=== PATIENT | male | born 1955 | race Caucasian/White ===

== ENCOUNTER 2016-10-02 22:26 | Observation (INO) | payer SELFPAY ==
[~2016-10-02] VITALS: Ht 165.1 cm; Wt 67.2 kg
[~2016-10-02 22:26] MED LIST: ALEVE220 MG PO; CARDURA8 MG PO; CYCLOBENZAPRINE10 MG PO; MELATONIN3 MG PO; VICODIN EQUIVAL1 TAB PO
--- NOTE | 2016-10-02 23:56 | ED CLINICAL REPORT ---
Clinical Report - Physicians/Mid Levels Located Within [facility] [address] [place] [address] 10/02/2016 22:25 Patient: FREDIS KOHLER Time Seen: 22:48. Arrived- By private vehicle. Historian- patient. HISTORY OF PRESENT ILLNESS Chief Complaint: ABDOMINAL PAIN and VOMITING. This started today about 3 1/2 hours ago and is still present. It was gradual in onset and has been waxing/waning. It is described as "pain". No radiation. It is described as generalized in location and located in the epigastric area and left upper quadrant and in the upper abdomen. At its maximum, severity described as moderate. When seen in the E.D., severity described as moderate. Modifying factors- worsened by food. Relieved by rest. Not relieved by anything. The patient has had nausea and vomiting. No bilious emesis, blood-tinged emesis or frankly bloody emesis. (Last oral intake by patient was (3 1/2 hours ago).). Similar symptoms previously: Recent medical care: Not recently seen/assessed. REVIEW OF SYSTEMS No constipation, black stools, hematemesis, difficulty with urination or pain with urination. No urinary frequency, bloody stools, fever, headache or sore throat. No chest pain, difficulty breathing, cough or back pain. All systems otherwise negative, except as recorded above. PAST HISTORY PROBLEMS: Animal Bite. Chronic Feet Px since child. Insomnia SURGERIES: Foot Sx. Hernia Repair. Right Forearm Sx. Medications: Flexeril, PRN (Back Pain). Melatonin Oral. Vicodin Oral, as needed (feet arthritis). Allergies: Codeine. PERCOCET, PERCODAN. SOCIAL HISTORY Never smoker. History of drug use: marijuana. No alcohol use. Is a local resident. ADDITIONAL NOTES The nursing notes have been reviewed. PHYSICAL EXAM Vital Signs: 10/02/2016 22:36 BP: 197/104. HR: 73. RR: 20. O2 saturation: 99%. Temp: 97.6 F. Appearance: Alert. Oriented X3. Patient in moderate distress. Eyes: Eyes normal inspection. No scleral icterus or pale conjunctivae. ENT: Pharynx normal. No pharyngeal erythema or tonsillar exudate. The mucous membranes are not dry. Neck: Normal inspection. Neck supple. CVS: Normal heart rate and rhythm. Heart sounds normal. Pulses normal. Respiratory: No respiratory distress. Breath sounds normal. Abdomen: Soft. Moderate tenderness diffusely. No mass. No rebound tenderness or guarding. Back: Normal inspection. Skin: Skin warm and dry. Normal skin color. Normal skin turgor. Extremities: Extremities exhibit normal ROM. No lower extremity edema. No calf tenderness. No lower extremity edema. Neuro: Oriented X 3. No motor deficit. LABS, X-RAYS, AND EKG Laboratory Tests: UA-Culture if indicated: (PAT: 10/02/2016 23:35) ( [facility] 10/02/2016 23:51) Final results Test Result Flag Units (Reference) URINE COLOR YELLOW URINE APPEARANCE CLEAR URINE GLUCOSE NEGATIVE (NEGATIVE) URINE BILIRUBIN NEGATIVE (NEGATIVE) URINE KETONE 1+ (NEGATIVE) URINE SPECIFIC GRAVITY 1.020 (1.010-1.030) URINE PH 7.0 (5.0-8.0) URINE PROTEIN NEGATIVE (NEGATIVE) URINE UROBILINOGEN 0.2 EU/dL (0.2-1.0) URINE NITRITE NEGATIVE (NEGATIVE) URINE BLOOD NEGATIVE (NEGATIVE) URINE LEUK ESTERASE NEGATIVE (NEGATIVE) URINE RBC 0-1 rbc/hpf (0-1) URINE WBC 0-1 wbc/hpf (0-1) URINE EPITHELIAL CELLS 0-1 EPI/hpf (0-5) URINE BACTERIA NONE SEEN (NONE SEEN) URINE COMMENT CULT NOT INDICATED URINE CULTURES ARE SET-UP BASED ON THE FOLLOWING CRITERIA:POSITIVE NITRITEPOSITIVE LEUKOCYTE ESTERASEGREATER THAN 10 WHITE BLOOD CELLSMODERATE (2+) OR GREATER BACTERIA CBC w Diff: (PAT: 10/02/2016 23:07) ( [facility] [place]) Final results Test Result Flag Units (Reference) WHITE BLOOD COUNT 8.5 K/uL (4.5-11.5) RED BLOOD COUNT 5.46 M/uL (4.50-5.90) HEMOGLOBIN 16.3 gm/dL (13.5-17.5) HEMATOCRIT 47.6 % (41.0-53.0) MEAN CELL VOLUME 87 fL (80-100) MEAN CORPUSCULAR HGB 30 pg (26-34) MEAN CORPUSCULAR HGB CONC 34 g/dL (31-37) RED CELL DISTRIBUTION WIDTH 13.5 % (11.6-14.8) PLATELET COUNT 228 K/uL (150-400) LYMPH % 21.5 L % (25-40) MONO % 5.0 % (3-14) GRANULOCYTE % 73.5 Urine Drug Screen: (PAT: 10/02/2016 23:35) ( [facility] 10/03/2016 00:05) Final results Test Result Flag Units (Reference) AMPHETAMINE/METHAMPHETAMINE NEGATIVE (NEGATIVE) BARBITURATE NEGATIVE (NEGATIVE) BENZODIAZEPINE NEGATIVE (NEGATIVE) CANNABINOID POSITIVE H (NEGATIVE) COCAINE NEGATIVE (NEGATIVE) ECSTASY NEGATIVE (NEGATIVE) METHADONE NEGATIVE (NEGATIVE) OPIATE NEGATIVE (NEGATIVE) The urine drug screen is a qualitative screening test fordrug overdose and abuse. All screen results should beconsidered as presumptive.Drugs screened for are as follows:BenzodiazepinesCocaineAmphetamines/MetamphetaminesTHC (Tetrahydrocannabinol)OpiatesBarbituratesEcstasyMethadonePositive results are unconfirmed. For confirmation, notifythe lab for the specimen to be sent to the reference lab.All confirmations must be performed by a differentmethodology.The ingestion of natural herbal and plant productscontaining Ephedra/Ephedra metabolites can produce in urineone or more substances capable of cross reacting withamphetamine/methamphetamine immunoassays. These testsprovide a preliminary result only. A more specificalternative chemical method must be used to obtain aconfirmed analytical result. CMP: (PAT: 10/02/2016 23:07) ( [facility] [place]02[facility] 23:33) Final results Test Result Flag Units (Reference) GLUCOSE 136 H mg/dL (70-110) BUN 18 mg/dL (7-18) CREATININE 0.9 mg/dL (0.6-1.3) Estimated GFR >60 mL/min Estimated GFR- >60 mL/min Note: Persistent reduction over 3 months in eGFR<60 mL/min/1.73 m2 defines CKD. Patients with eGFR values>=60 mL/min/1.73 m2 may also have CKD if evidence ofpersistent proteinuria. Additional information may be foundat www.kidney.org. SODIUM 139 mmol/L (136-145) POTASSIUM 3.7 mmol/L (3.5-5.1) CHLORIDE 102 mmol/L (98-107) CARBON DIOXIDE 26 mmol/L (21-32) CALCIUM 9.3 mg/dL (8.5-10.1) TOTAL PROTEIN 7.6 g/dL (6.4-8.2) ALBUMIN 4.4 g/dL (3.3-5.0) BILIRUBIN, TOTAL 0.9 mg/dL (0.0-1.0) ALKALINE PHOSPHATASE 70 U/L (46-116) AST (SGOT) 22 U/L (15-37) ALT (SGPT) 23 U/L (12-78) LIPASE 645 H U/L (73-393) AMYLASE 192 H U/L (25-115) ETHYL ALCOHOL <3 L mg/dL (3-10) . Pulse Oximetry: 10/02/2016 22:36 O2 saturation: 99%. (FIO2 - room air). Interpretation: normal. PROGRESS AND PROCEDURES Course of Care: Normal Saline 1 liter IVPB given. Zofran 4 mg IVP given. Protonix 40 mg IVP given. Dilaudid 0.5 mg and Phenergan 12.5 mg IVP given. Patient is stable. Physical exam findings are improved. Symptoms better. Pt with pancreatic enzyme elevation and corresponding abdominal pain and vomiting. He will be admitted for observation, IVF, GI rest and symptomatic treatment with repeat enzymes tomorrow. Discussed case with hospitalist, (Ramiro call returned 00:05). Reviewed test results. Agreed upon treatment plan and decision to place in observation. Health care provider will see patient in hospital. Patient/family counseled. Old ED records reviewed. Transition orders written. Disposition: Observation in Acute Care. Condition: stable, guarded and improved. CLINICAL IMPRESSION Vomiting with nausea. Not intractable. Acute idiopathic pancreatitis. Essential hypertension. Chronic substance abuse- marijuana. INSTRUCTIONS Follow-up: Screening today revealed the patient's blood pressure to be in the hypertensive range. The patient should follow up with a primary care provider for blood pressure management. The patient was admitted and blood pressure will be managed during the admission. (Electronically signed by Biju Gregorio DO 10/03/2016 1:14)
--- NOTE | 2016-10-02 23:56 | ED ORDER SUMMARY ---
..... Patient: FREDIS KOHLER OrderSheet [facility] VisitID: [id number] [address] [place] [address] 61y, M Registration Date/Time: 10/02/2016 ORDER SHEET Weight: 68.0 kg (stated) Allergies: Codeine, PERCOCET, PERCODAN GENERAL ORDERS: CBC w Diff Urgent (22:51 10/02/2016 [facility]) (Ack 23:01 Anthoy[employer]ands[employer]na) (23:15 JBullard R.N.) CMP Urgent (22:51 [facility]2016 [facility] (Ack 23:01 Anthonyekna) (23:15 JBullard R.N.) UA-Culture if indicated Urgent (22:51 10/02/2016 [facility] ) (Ack 23:01 Anthonyekna) (23:41 JBullard R.N.) Amylase Urgent (22:51 10/02/2016 [facility]) (Ack 23:01 Anthonyekimana) (23:15 JBullard R.N.) Lipase Urgent (22:51 10/02/2016 [facility]) (Ack 23:01 Anthonyekimana) (23:15 JBullard R.N.) Urine Drug Screen Urgent (22:51 10/02/2016 [facility] ) (Ack 23:01 Anthonyekna) (23:41 JBullard R.N.) Ethyl Alcohol Urgent (22:51 10/02/2016 [facility]) (Ack 23:01 Anthonyna) (23:15 JBullard R.N.) NPO (22:51 10[facility]02/2016 [facility]) (23:15 JBullard R.N.) MEDICATION ORDERS: Phenergan IV 12.5 mg (HIGH ALERT MEDICATION, NOW) (00:10 10/03/2016 [facility]) (0:27 JBullard R.N.) IV FLUIDS: IV NS : initial bolus 500 mL (1000 mL/hr), then 250 mL/hr for X2 (NOW) (22:50 10/02/2016 [facility]) (23:16 Monroe Mixon.N.) Zofran IV 4 mg (may repeat x 1 prn nausea) (22:51 10/02/2016 [facility]) (23:16 Monroe Mixon.N.) Protonix IVP 40mg 40 mg (Mix in NS 10ml over 2min) (22:51 10/02/2016 [facility]) (23:16 Monroe Mixon.N.) Dilaudid IV 0.5 mg (HIGH ALERT MEDICATION, NOW) (00:10 10/03/2016 [facility]) (0:27 Monroe Mixon.NFer) ORDER SHEET NOTES: [Electronically signed by Tolu Barlow R.N. (00:43 10/03/2016)] [Electronically signed by Biju Gregorio DO (01:14 10/03/2016)] [Electronically locked/signed by Tolu Barlow R.N. (00:43 10/03/2016)]
--- NOTE | 2016-10-02 23:56 | ED NURSING NOTES ---
Clinical Report - Nurses [facility] [address] [place] [address] 10/02/2016 22:25 Patient: FREDIS KOHLER TRIAGE Acuity: LEVEL 3. Chief Complaint: ABDOMINAL PAIN, NAUSEA and VOMITING. --22:41 Tolu Barlow R.N. 22:36 10/02/16. BP: 197/104. HR: 73. RR: 20. O2 saturation: 99%. Temp: 97.6 F. --22:41 Tolu Barlow R.N. Weight: 68 kg stated. Height/Length: 65 inches Per Patient. BMI: 25. --22:41 Tolu Barlow R.N. Medications Flexeril, PRN (Back Pain). Melatonin Oral. Vicodin Oral, as needed (feet arthritis). --22:38 Tolu Barlow R.N. Allergies Codeine. PERCOCET, PERCODAN. --22:38 Tolu Barlow R.N. History ( pt ate dinner at approx. 7pm, approx. 10 min. later pt started vomitting.). He has had nausea, vomiting and abdominal pain. Last oral intake by patient was (3 1/2 hours ago). 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 SOCIAL HX: Never smoker. History of heavy drug use: marijuana. Recently used drugs today. No alcohol use. FALL RISK ASSESSMENT: Fall risk assessment completed. No fall risk identified. NUTRITIONAL RISK ASSESSMENT: The nutritional risk assessment revealed no deficiencies. FUNCTIONAL ASSESSMENT: Functional assessment: no impairments noted. LEARNING NEEDS ASSESSMENT: The learning needs assessment revealed no barriers. SKIN INTEGRITY ASSESSMENT: Skin integrity risk assessment completed. No skin integrity risk identified. --22:41 Tolu Barlow R.N. PROBLEMS: Animal Bite. Chronic Feet Px since child. --22:38 Tolu Barlow R.N. ADDITIONAL SURGERIES: Feet Sx. Hernia Repair. Right Forearm Sx. --22:38 Tolu Barlow R.N. Interventions ID band on patient. --22:41 Tolu Barlow R.N. PHYSICAL ASSESSMENT GENERAL / NEURO / PSYCH: Alert. Oriented X 4. Appears in distress. HEENT: Mucous membranes are pink. RESPIRATORY: Respirations not labored. Breath sounds within normal limits. CVS: Normal sinus rhythm noted. Capillary refill less than 2 seconds. SKIN: Skin is warm and dry. --22:41 Tolu Barlow R.N. Ambulatory to room. --22:41 Tolu Barlow R.N. NURSING PROGRESS NOTES Head of bed elevated. Reassurance given. Patient identifiers checked. Call light placed in reach. Bed placed in lowest position. Brakes of bed on. --22:41 Tolu Barlow R.N. 23:10/02/2016 Site #1 started via IV in the left antecubital space with an 18g angiocath, with aseptic technique and good blood return; one attempt. Blood drawn: rainbow set. Labeled in the presence of the patient and sent to the lab. Saline lock flushed with saline. --23:15 Tolu Barlow R.N. 23:15 10/02/2016 Started bag #1 1000 mL IV Fluids IV NS (Saline); at 333 mL/hr over 3 hour(s) via site #1. Allergies verified and confirmed 5 rights. IV patency established. IV site checked: no pain, redness, or swelling. IV flushed thoroughly pre- and post-medication administration. --23:16 Tolu Barlow R.N. 23:16 10/02/2016 Zofran (Ondansetron HCl) IVP 4 mg given. via site #1. Allergies verified and confirmed 5 rights. IV patency established. IV site checked: no pain, redness, or swelling. IV flushed thoroughly pre- and post-medication administration. --23:16 Tolu Barlow R.N. 23:16 10/02/2016 PROTONIX 40MG (Pantoprazole Sodium) IVP 40 mg given over 2 minute(s) via site #1. Allergies verified and confirmed 5 rights. IV patency established. IV site checked: no pain, redness, or swelling. IV flushed thoroughly pre- and post-medication administration. --23:16 Tolu Barlow R.N. 00:27 10/03/2016 Dilaudid (HYDROmorphone HCl PF) IVP 0.5 mg given. via site #1. Allergies verified, confirmed 5 rights and sedative warning given to the patient and patient's ghost writer. IV patency established. IV site checked: no pain, redness, or swelling. IV flushed thoroughly pre- and post-medication administration. --00:27 Tolu Barlow R.N. 00:27 10/03/2016 PHENERGAN (Promethazine HCl) IVP 12.5 mg given. via site #1. Allergies verified and confirmed 5 rights. IV patency established. IV site checked: no pain, redness, or swelling. IV flushed thoroughly pre- and post-medication administration. --00:27 Tolu Barlow R.N. 00:28 10/03/2016 IV Fluids IV NS Discontinued: completed. Total amount infused: 1000 mL. IV patency established. IV site checked: no pain, redness, or swelling. IV flushed thoroughly. --00:28 Tolu Barlow R.N. DISPOSITION / DISCHARGE Transported via stretcher. Report was given to a nurse via a phone call. Report included patient's care, treatment, medications, reviewed medication reconcilliation, and condition (including any recent changes or anticipated changes). All questions were answered. Report was acknowledged and care was transferred. Bed obtained. --00:38 Tlou Barlow R.N. 00:37 10/03/16. BP: 188/98. HR: 88. RR: 16. O2 saturation: 98%. Temp: 98 F. Pain level now 10/22. --00:38 Tolu Barlow R.N. Departure time: 41. --00:43 Tolu Barlow R.N. Locked/Released at 10/03/2016 0:43 by Tolu Barlow R.N.
--- NOTE | 2016-10-02 23:56 | ED NURSING NOTES ---
Clinical Report - Nurses [facility] [address] [place] [address] 10/02/2016 22:25 Patient: FREDIS KOHLER TRIAGE Acuity: LEVEL 3. Chief Complaint: ABDOMINAL PAIN, NAUSEA and VOMITING. --22:41 Tolu Barlow R.N. 22:36 10/02/16. BP: 197/104. HR: 73. RR: 20. O2 saturation: 99%. Temp: 97.6 F. --22:41 Tolu Barlow R.N. Weight: 68 kg stated. Height/Length: 65 inches Per Patient. BMI: 25. --22:41 Tolu Barlow R.N. Medications Flexeril, PRN (Back Pain). Melatonin Oral. Vicodin Oral, as needed (feet arthritis). --22:38 Tolu Barlow R.N. Allergies Codeine. PERCOCET, PERCODAN. --22:38 Tolu Barlow R.N. History ( pt ate dinner at approx. 7pm, approx. 10 min. later pt started vomitting.). He has had nausea, vomiting and abdominal pain. Last oral intake by patient was (3 1/2 hours ago). 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 SOCIAL HX: Never smoker. History of heavy drug use: marijuana. Recently used drugs today. No alcohol use. FALL RISK ASSESSMENT: Fall risk assessment completed. No fall risk identified. NUTRITIONAL RISK ASSESSMENT: The nutritional risk assessment revealed no deficiencies. FUNCTIONAL ASSESSMENT: Functional assessment: no impairments noted. LEARNING NEEDS ASSESSMENT: The learning needs assessment revealed no barriers. SKIN INTEGRITY ASSESSMENT: Skin integrity risk assessment completed. No skin integrity risk identified. --22:41 Tolu Barlow R.N. PROBLEMS: Animal Bite. Chronic Feet Px since child. --22:38 Tolu Barlow R.N. ADDITIONAL SURGERIES: Feet Sx. Hernia Repair. Right Forearm Sx. --22:38 Tolu Barlow R.N. Interventions ID band on patient. --22:41 Tolu Barlow R.N. PHYSICAL ASSESSMENT GENERAL / NEURO / PSYCH: Alert. Oriented X 4. Appears in distress. HEENT: Mucous membranes are pink. RESPIRATORY: Respirations not labored. Breath sounds within normal limits. CVS: Normal sinus rhythm noted. Capillary refill less than 2 seconds. SKIN: Skin is warm and dry. --22:41 Tolu Barlow R.N. Ambulatory to room. --22:41 Tolu Barlow R.N. NURSING PROGRESS NOTES Head of bed elevated. Reassurance given. Patient identifiers checked. Call light placed in reach. Bed placed in lowest position. Brakes of bed on. --22:41 Tolu Barlow R.N. 23:10/02/2016 Site #1 started via IV in the left antecubital space with an 18g angiocath, with aseptic technique and good blood return; one attempt. Blood drawn: rainbow set. Labeled in the presence of the patient and sent to the lab. Saline lock flushed with saline. --23:15 Tolu Barlow R.N. 23:15 10/02/2016 Started bag #1 1000 mL IV Fluids IV NS (Saline); at 333 mL/hr over 3 hour(s) via site #1. Allergies verified and confirmed 5 rights. IV patency established. IV site checked: no pain, redness, or swelling. IV flushed thoroughly pre- and post-medication administration. --23:16 Tolu Barlow R.N. 23:16 10/02/2016 Zofran (Ondansetron HCl) IVP 4 mg given. via site #1. Allergies verified and confirmed 5 rights. IV patency established. IV site checked: no pain, redness, or swelling. IV flushed thoroughly pre- and post-medication administration. --23:16 Tolu Barlow R.N. 23:16 10/02/2016 PROTONIX 40MG (Pantoprazole Sodium) IVP 40 mg given over 2 minute(s) via site #1. Allergies verified and confirmed 5 rights. IV patency established. IV site checked: no pain, redness, or swelling. IV flushed thoroughly pre- and post-medication administration. --23:16 Tolu Barlow R.N. 00:27 10/03/2016 Dilaudid (HYDROmorphone HCl PF) IVP 0.5 mg given. via site #1. Allergies verified, confirmed 5 rights and sedative warning given to the patient and patient's sales associate fishing. IV patency established. IV site checked: no pain, redness, or swelling. IV flushed thoroughly pre- and post-medication administration. --00:27 Tolu Barlow R.N. 00:27 10/03/2016 PHENERGAN (Promethazine HCl) IVP 12.5 mg given. via site #1. Allergies verified and confirmed 5 rights. IV patency established. IV site checked: no pain, redness, or swelling. IV flushed thoroughly pre- and post-medication administration. --00:27 Tolu Barlow R.N. 00:28 10/03/2016 IV Fluids IV NS Discontinued: completed. Total amount infused: 1000 mL. IV patency established. IV site checked: no pain, redness, or swelling. IV flushed thoroughly. --00:28 Tolu Barlow R.N. DISPOSITION / DISCHARGE Transported via stretcher. Report was given to a nurse via a phone call. Report included patient's care, treatment, medications, reviewed medication reconcilliation, and condition (including any recent changes or anticipated changes). All questions were answered. Report was acknowledged and care was transferred. Bed obtained. --00:38 oTlu Barlow R.N. 00:37 10/03/16. BP: 188/98. HR: 88. RR: 16. O2 saturation: 98%. Temp: 98 F. Pain level now 10/22. --00:38 Tolu Barlow R.N. Departure time: 41. --00:43 Tolu Barlow R.N. Locked/Released at 10/03/2016 0:43 by Tolu Barlow R.N.
--- NOTE | 2016-10-02 23:56 | ED ORDER SUMMARY ---
..... Patient: FREDIS KOHLER OrderSheet [facility] VisitID: [id number] [address] [place] [address] 61y, M Registration Date/Time: 10/02/2016 ORDER SHEET Weight: 68.0 kg (stated) Allergies: Codeine, PERCOCET, PERCODAN GENERAL ORDERS: CBC w Diff Urgent (22:51 10/02/2016 [facility]) (Ack 23:01 AnthonyMetooona) (23:15 JBullard R.N.) CMP Urgent (22:51 10/02/2016 [facility]) (Ack 23:01 Anthonyekna) (23:15 JBullard R.N.) UA-Culture if indicated Urgent (22:51 10/02/2016 [facility] ) (Ack 23:01 Anthonyekna) (23:41 JBullard R.N.) Amylase Urgent (22:51 10/02/2016 [facility]) (Ack 23:01 Anthonyekimana) (23:15 JBullard R.N.) Lipase Urgent (22:51 10/02/2016 [facility]) (Ack 23:01 Anthonyekimana) (23:15 JBullard R.N.) Urine Drug Screen Urgent (22:51 10/02/2016 [facility] ) (Ack 23:01 Anthonyekna) (23:41 JBullard R.N.) Ethyl Alcohol Urgent (22:51 10/02/2016 [facility]) (Ack 23:01 Anthonyna) (23:15 JBullard R.N.) NPO (22:51 10/02/2016 [facility]) (23:15 JBullard R.N.) MEDICATION ORDERS: Phenergan IV 12.5 mg (HIGH ALERT MEDICATION, NOW) (00:10 10/03/2016 [facility]) (0:27 JBullard R.N.) IV FLUIDS: IV NS : initial bolus 500 mL (1000 mL/hr), then 250 mL/hr for X2 (NOW) (22:50 10/02/2016 [facility]) (23:16 Monroe Mixon.N.) Zofran IV 4 mg (may repeat x 1 prn nausea) (22:51 10/02/2016 [facility]) (23:16 Monroe Mixon.N.) Protonix IVP 40mg 40 mg (Mix in NS 10ml over 2min) (22:51 10/02/2016 [facility]) (23:16 Monroe Mixon.N.) Dilaudid IV 0.5 mg (HIGH ALERT MEDICATION, NOW) (00:10 10/03/2016 [facility]) (0:27 Monroe Mixon.NFer) ORDER SHEET NOTES: [Electronically signed by Tolu Barlow R.N. (00:43 10/03/2016)] [Electronically signed by Biju Gregorio DO (01:14 10/03/2016)] [Electronically locked/signed by Tolu Barlow R.N. (00:43 10/03/2016)]
[2016-10-03 01:07] VITALS: BP 180/86
--- NOTE | 2016-10-03 01:14 | ED DISCHARGE INSTRUCTIONS ---
Patient: FREDIS KOHLER General Instructions [facility] VisitID: [id number] [place] [address] 61y, M Registration Date/Time: 10/02/2016 Vomiting with nausea. Not intractable. Acute idiopathic pancreatitis. Essential hypertension. Chronic substance abuse- marijuana. INSTRUCTIONS Follow-up: Screening today revealed the patient's blood pressure to be in the hypertensive range. The patient should follow up with a primary care provider for blood pressure management. The patient was admitted and blood pressure will be managed during the admission. ADDITIONAL INFORMATION Vomiting [6Yr-Adult] Vomiting is a common symptom that may be due to different causes. These include gastroenteritis ("stomach flu"), food poisoning and gastritis. There are other more serious causes of vomiting which may be hard to diagnose early in the illness. Therefore, it is important to watch for the warning signs listed below. The main danger from repeated vomiting is dehydration. This is due to excess loss of water and minerals from the body. When this occurs, body fluids must be replaced. Home Care: If symptoms are severe, rest at home for the next 24 hours. You may use acetaminophen (Tylenol) or ibuprofen (Motrin, Advil) to control fever, unless another medicine was prescribed. [NOTE : If you have chronic liver or kidney disease or ever had a stomach ulcer or GI bleeding, talk with your doctor before using these medicines.] (Aspirin should never be used in anyone under 18 years of age who is ill with a fever. It may cause severe liver damage.) Avoid tobacco and alcohol use, which may worsen your symptoms. If medicines for vomiting were prescribed, take as directed. Once vomiting stops, then follow these guidelines: During The First 12-24 Hours follow the diet below: FRUIT JUICES: Apple, grape juice, clear fruit drinks, and electrolyte replacement drinks. BEVERAGES: Soft drinks without caffeine; mineral water (plain or flavored), decaffeinated tea and coffee. SOUPS: Clear broth, consomm and bouillon DESSERTS: Plain gelatin, popsicles and fruit juice bars. As you feel better, you may add 6-8 ounces of yogurt per day. During The Next 24 Hours you may add the following to the above: Hot cereal, plain toast, bread, rolls, crackers Plain noodles, rice, mashed potatoes, chicken noodle or rice soup Unsweetened canned fruit (avoid pineapple), bananas Limit caffeine and chocolate. No spices or seasonings except salt. During The Next 24 Hours Gradually resume a normal diet, as you feel better and your symptoms lessen. Follow Up with your doctor as advised if you are not improving over the next 2-3 days. Get Prompt Medical Attention if any of the following occur: Constant right-sided lower abdominal pain or increasing general abdominal pain Continued vomiting (unable to keep liquids down) for 24 hours Frequent diarrhea (more than 5 times a day); blood (red or black color) or mucus in diarrhea Reduced urine output or extreme thirst Weakness, dizziness or fainting Unusually drowsy or confused Fever of 100.4F (38C) oral or higher, not better with fever medication Yellow color of the eyes or skin High Blood Pressure --Established High Blood Pressure (Hypertension) is a chronic disease. The cause is unknown in most cases. It can usually be controlled with lifestyle changes and/or medicines. Symptoms of high blood pressure may include headache, dizziness, visual changes, chest pain and shortness of breath. Sometimes it causes no symptoms at all. However, even if there are no symptoms, untreated high blood pressure increases the risk of heart attack, also known as acute myocardial infarction, or AMI, and stroke. It is a serious health risk and should not be ignored. A normal blood pressure is 120/80 or less. The first (top) number is the "systolic" pressure. The second (bottom) number is the "diastolic" pressure. Hypertension exists when either the top number is 140 or higher, OR the bottom number is 90 or higher on repeated measurements. Home Care: All patients with high blood pressure should do the following to lower their pressure. If you are on medicines, then these methods may reduce or eliminate your need for medicines in the future. Begin a weight loss program if you are overweight. Reduce your salt intake. Avoid high salt foods (olives, pickles, smoked meats, salted potato chips, etc.). Do not add salt to your food at the table. Use only small amounts of salt when cooking. Begin an exercise program. Discuss with your doctor what type of exercise program would be best for you. It doesn't have to be difficult. Even brisk walking for 20 minutes three times a week is a good form of exercise. Avoid medicines which contain heart stimulants. This includes many cold and sinus decongestant pills and sprays as well as diet pills. Check the warnings about hypertension on the label. Stimulants such as amphetamine or cocaine could be lethal for someone with hypertension. Never take these. Limit your caffeine intake or switch to caffeine-free products. Stop smoking. If you are a long-time smoker, this can be hard. Enroll in a stop-smoking program to improve your chance of success. Learning how to handle stress better is an important part of any program to lower blood pressure. Learn about relaxation methods such as meditation, yoga or biofeedback. If medicines were prescribed, take them exactly as directed. Missing doses may cause your blood pressure get out of control. Consider buying an automatic blood pressure machine (available at most pharmacies). Use this to monitor your blood pressure at home and report the results to your doctor. Follow Up: Regular visits to your own physician for blood pressure checks and medicine adjustment is an important part of your care. Make a follow-up appointment as directed by our staff. Get Prompt Medical Attention if any of the following occur: Chest pain or shortness of breath Severe headache Throbbing or rushing sound in the ears Nosebleed Sudden severe abdominal pain Extreme drowsiness, confusion or fainting Dizziness or vertigo (dizziness with spinning sensation) Weakness of an arm or leg or one side of the face Difficulty with speech or vision You have been given the following additional information: Vomiting (5Y-Adult) Hypertension, Established (Electronically signed by Biju Gregorio DO 10/03/2016 1:14)
--- NOTE | 2016-10-03 01:15 | ED MED RECONCILIATION SUMMARY ---
Patient: FREDIS KOHLER Medication Reconciliation Report [facility] VisitID: [id number] [address] [place] [address] 61y, M Registration Date/Time: 10/02/2016 Weight: 68.0 kg Height/Length: 65 in. BMI: 25.0 ALLERGIES: Codeine, PERCOCET, PERCODAN The patient's Home Medications are listed below: THE FOLLOWING MEDICATIONS NEED TO BE RECONCILED: Flexeril, PRN, Back Pain Melatonin Oral Vicodin Oral, feet arthritis The source(s) of the original Home Medication information: Not obtained. The following Medications were given to the patient in the Emergency Department: IV NS IV Fluids bolus 0, then 333 mL/hr, administered: 10/02/2016 11:15:00 PM Zofran [IVP] IVP 4 mg, administered: 10/02/2016 11:16:00 PM PROTONIX 40MG [IVP] IVP 40 mg, administered: 10/02/2016 11:16:00 PM Dilaudid [IVP] IVP 0.5 mg, administered: 10/03/2016 12:27:00 AM PHENERGAN [IVP] IVP 12.5 mg, administered: 10/03/2016 12:27:00 AM The following Medications were prescribed to the patient: None.
--- NOTE | 2016-10-03 01:15 | ED MAR SUMMARY ---
..... Medication Administration Record [facility] [address] [place] [address] Patient: FREDIS KOHLER Visit ID: [id number] 61y, M Weight: 68.0 kg Height/Length: 65 in BMI: 25 ALLERGIES: Codeine, PERCOCET, PERCODAN Start 23:15 10/02/2016 Tolu Barlow R.N., Stop 00:28 10/03/2016 Tolu Barlow R.N. Medication Administered: IV NS (SALINE), Dose: IV Fluids over 3 hour(s), Rate: 333 mL/hr, Dispensed: 1000 mL bag, Site: #1 left AC. Medication Ordered: IV NS : initial bolus 500 mL (1000 mL/hr), then 250 mL/hr for X2 (NOW). Given 23:16 10/02/2016 Tolu Barlow R.N. Medication Administered: ZOFRAN [IVP] (ONDANSETRON HCL), Dose: 4 mg IVP, Site: #1 left AC. Medication Ordered: Zofran IV 4 mg (may repeat x 1 prn nausea). Given 23:16 10/02/2016 Tolu Barlow R.N. Medication Administered: PROTONIX 40MG [IVP] (PANTOPRAZOLE SODIUM), Dose: 40 mg IVP over 2 minute(s), Site: #1 left AC. Medication Ordered: Protonix IVP 40mg 40 mg (Mix in NS 10ml over 2min). Given :10/03/2016 Tolu Barlow R.N. Medication Administered: DILAUDID [IVP] (HYDROMORPHONE HCL PF), Dose: 0.5 mg IVP, Site: #1 left AC. Medication Ordered: Dilaudid IV 0.5 mg (HIGH ALERT MEDICATION, NOW). Given :10/03/2016 Tolu Barlow R.N. Medication Administered: PHENERGAN [IVP] (PROMETHAZINE HCL), Dose: 12.5 mg IVP, Site: #1 left AC. Medication Ordered: Phenergan IV 12.5 mg (HIGH ALERT MEDICATION, NOW).
--- NOTE | 2016-10-03 01:15 | ED MED RECONCILIATION SUMMARY ---
Patient: FREDIS KOHLER Medication Reconciliation Report [facility] VisitID: [id number] [address] [place] [address] 61y, M Registration Date/Time: 10/02/2016 Weight: 68.0 kg Height/Length: 65 in. BMI: 25.0 ALLERGIES: Codeine, PERCOCET, PERCODAN The patient's Home Medications are listed below: THE FOLLOWING MEDICATIONS NEED TO BE RECONCILED: Flexeril, PRN, Back Pain Melatonin Oral Vicodin Oral, feet arthritis The source(s) of the original Home Medication information: Not obtained. The following Medications were given to the patient in the Emergency Department: IV NS IV Fluids bolus 0, then 333 mL/hr, administered: 10/02/2016 11:15:00 PM Zofran [IVP] IVP 4 mg, administered: 10/02/2016 11:16:00 PM PROTONIX 40MG [IVP] IVP 40 mg, administered: 10/02/2016 11:16:00 PM Dilaudid [IVP] IVP 0.5 mg, administered: 10/03/2016 12:27:00 AM PHENERGAN [IVP] IVP 12.5 mg, administered: 10/03/2016 12:27:00 AM The following Medications were prescribed to the patient: None.
--- NOTE | 2016-10-03 01:15 | ED MAR SUMMARY ---
..... Medication Administration Record [facility] [address] [place] [address] Patient: FREDIS KOHLER Visit ID: [id number] 61y, M Weight: 68.0 kg Height/Length: 65 in BMI: 25 ALLERGIES: Codeine, PERCOCET, PERCODAN Start 23:15 10/02/2016 Tolu Barlow R.N., Stop 00:28 10/03/2016 Tolu Barlow R.N. Medication Administered: IV NS (SALINE), Dose: IV Fluids over 3 hour(s), Rate: 333 mL/hr, Dispensed: 1000 mL bag, Site: #1 left AC. Medication Ordered: IV NS : initial bolus 500 mL (1000 mL/hr), then 250 mL/hr for X2 (NOW). Given 23:16 10/02/2016 Tolu Barlow R.N. Medication Administered: ZOFRAN [IVP] (ONDANSETRON HCL), Dose: 4 mg IVP, Site: #1 left AC. Medication Ordered: Zofran IV 4 mg (may repeat x 1 prn nausea). Given 23:16 10/02/2016 Tolu Barlow R.N. Medication Administered: PROTONIX 40MG [IVP] (PANTOPRAZOLE SODIUM), Dose: 40 mg IVP over 2 minute(s), Site: #1 left AC. Medication Ordered: Protonix IVP 40mg 40 mg (Mix in NS 10ml over 2min). Given :10/03/2016 Tolu Barlow R.N. Medication Administered: DILAUDID [IVP] (HYDROMORPHONE HCL PF), Dose: 0.5 mg IVP, Site: #1 left AC. Medication Ordered: Dilaudid IV 0.5 mg (HIGH ALERT MEDICATION, NOW). Given :10/03/2016 Tolu Barlow R.N. Medication Administered: PHENERGAN [IVP] (PROMETHAZINE HCL), Dose: 12.5 mg IVP, Site: #1 left AC. Medication Ordered: Phenergan IV 12.5 mg (HIGH ALERT MEDICATION, NOW).
[2016-10-03 01:17] VITALS: BP 176/80
--- NOTE | 2016-10-03 02:26 | HISTORY AND PHYSICAL ---
ADMITTED: 10/03/2016 CHIEF COMPLAINT: 1. Vomiting HISTORY OF PRESENT ILLNESS: This is a 61-year-old male who was feeling fine until this evening when he had acute onset of nausea, vomiting multiple times. He also had a loose bowel movement; however, he states this is pretty normal for him. When the vomiting did not stop, he came to the emergency department. He states that after the vomiting started, he also started having abdominal pain as well. Emergency room course: The patient was given IV fluids pantoprazole, Dilaudid, and Phenergan while in the emergency department. MEDICAL/SURGICAL HISTORY: Past medical history: Colonoscopy in 2011 showing diverticulosis and a rectal polyp, which was removed. He has had multiple foot surgeries and hand surgery. MEDICATIONS: 1. Vicodin as needed. 2. Flexeril For low back pain. 3. Melatonin 7 mg p.o. at bedtime. ALLERGIES: 1. CODEINE CAUSES NAUSEA AND VOMITING. SOCIAL HISTORY: The patient smokes marijuana intermittently. Denies any tobacco or alcohol use. He lives with his brother. He feels safe there. FAMILY HISTORY: Brother with diabetes, who . Mother with breast cancer. Father with colon cancer. REVIEW OF SYSTEMS: A full 12-point review of systems was done and was negative except as per HPI. PHYSICAL EXAMINATION: VITAL SIGNS: Blood pressure is 176/80, pulse 62, respiratory rate of 15, O2 saturation 98% on room air, T-max 36.6 degrees Celsius. GENERAL: This is a well-appearing, but in mild distress male, lying in bed. HEENT: Head is atraumatic, normocephalic. Pupils are equal, round, and reactive to light with accommodation bilaterally. Extraocular muscles are intact bilaterally. Oropharynx is nonerythematous without exudates. NECK: Trachea is midline. There is no JVD. HEART: S1, S2, regular rate and rhythm. No S3, S4, murmurs, gallops, or rubs. LUNGS: Clear to auscultation bilaterally. ABDOMEN: Soft, nondistended, with diffuse tenderness, most in the left upper quadrant, secondarily in the left lower quadrant but without any guarding or peritoneal signs. EXTREMITIES: There is no lower extremity edema. LAB/IMAGING: Sodium is 139, potassium 3.7, chloride 102, bicarbonate 26, BUN of 18, creatinine 0.9, glucose of 136, calcium 9.3, total protein of 7.6, albumin 4.4, total bilirubin 0.9, alkaline phosphatase of 70, AST of 22, ALT of 23. White blood cell count 8.5, hemoglobin 16.3, hematocrit 47.6, and platelets are 228. Amylase of 182 and lipase is 645. ETOH is less than 3 and urine toxicology shows positive for marijuana. UA is negative. IMPRESSION: 1. This is a 61-year-old male with nausea and vomiting and abdominal pain, likely from food poisoning versus acute gastroenteritis versus but possibly with developing pancreatitis. One also needs to keep in mind that this patient does have diverticulosis and may be at risk of diverticulitis. Considering that his pain is worse in the left upper quadrant, I will not do a CT scan at this time; however, if his pain worsens or he is not improved in the morning, one may need to consider doing a CT scan of the abdomen. PLAN: 1. Fluids, electrolytes, nutrition: The patient will be on IV fluids. 2. Cardiorespiratory: Stable. Blood pressure is extremely elevated, possibly secondary to pain. If blood pressure is not decreasing in the next hour, we may need to reconsider intervention. 3. Gastrointestinal: Food poisoning versus gastroenteritis versus pancreatitis, less likely diverticulosis. The patient will be n.p.o. until morning and we will recheck labs in the morning. If the patient worsens at any point, we may order a CT scan of the abdomen; however, given the fact that the majority of the pain is in the left upper quadrant and that his white blood cell count is normal, I will not do CT scan of his abdomen at this time. I have added on a lactic acid, and if that is elevated, we will proceed with a CT scan. 4. Endocrine. Hyperglycemia, I have added a hemoglobin A1c. 5. Prophylaxis: The patient is n.p.o. and therefore I will continue pantoprazole. The patient was started on sequential compression devices; however, if he remains inpatient for longer than 24 hours, one should strongly consider starting chemical deep venous thrombosis prophylaxis. 6. CODE STATUS: FULL CODE.
[2016-10-03 07:03] VITALS: BP 161/108
[2016-10-03 07:04] VITALS: BP 166/113
--- NOTE | 2016-10-03 08:09 | Progress Note ---
Medications and Allergies Allergies Coded Allergies: Codeine (Nausea/vomiting 10/03/16) Physical Exam LAB Results Laboratory Tests 10/03 10/03 10/03 10/02 0640 0640 0640 2335 Chemistry Plasma Sodium (136 - 145 mmol/L) 136 Plasma Potassium (3.5 - 5.1 mmol/L) 3.7 Plasma Chloride (98 - 107 mmol/L) 104 CO2 (Enzymatic) (21 - 32 mmol/L) 20 BUN (7 - 18 mg/dL) 11 Creatinine (0.6 - 1.3 mg/dL) 0.7 Est GFR ( Amer) (mL/min) >60 Est GFR (Non-Af Amer) (mL/min) >60 Glucose (70 - 110 mg/dL) 136 Hemoglobin A1c % (4.5 - 6.2 %) 4.7 Lactic Acid (0.4 - 2.0 mmol/L) 1.2 Plasma Calcium (8.5 - 10.1 mg/dL) 8.4 Amylase (25 - 115 U/L) 79 Lipase (73 - 393 U/L) 116 Hematology WBC (4.5 - 11.5 K/uL) 11.3 RBC (4.50 - 5.90 M/uL) 5.28 Hgb (13.5 - 17.5 gm/dL) 15.7 Hct (41.0 - 53.0 %) 46.3 MCV (80 - 100 fL) 88 MCH (26 - 34 pg) 30 RDW (11.6 - 14.8 %) 13.7 Neut % (Auto) (50 - 75 %) 87.2 Lymph % (Auto) (25 - 40 %) 10.6 Cowley % (Auto) (3 - 14 %) 2.0 Eos % (Auto) (0 - 4 %) 0 Baso % (Auto) (0 - 2 %) 0.2 Plt Count, EDTA (150 - 400 K/uL) 245 PUBS MCHC (31 - 37 g/dL) 34 Toxicology Urine Opiates Screen (NEGATIVE) NEGATIVE Urine Methadone Screen (NEGATIVE) NEGATIVE Ur Barbiturates Screen (NEGATIVE) NEGATIVE U Amphetamin/Meth Scrn (NEGATIVE) NEGATIVE MDMA (Ecstasy) Screen (NEGATIVE) NEGATIVE U Benzodiazepines Scrn (NEGATIVE) NEGATIVE Urine Cocaine Screen (NEGATIVE) NEGATIVE U Cannabinoids Screen (NEGATIVE) POSITIVE Urines Urine Color YELLOW Urine Appearance CLEAR Urine pH (5.0 - 8.0) 7.0 Ur Specific [place] (1.010 - 1.030) 1.020 Urine Protein (NEGATIVE) NEGATIVE Urine Ketones (NEGATIVE) 1+ Urine Blood (NEGATIVE) NEGATIVE Urine Nitrite (NEGATIVE) NEGATIVE Urine Bilirubin (NEGATIVE) NEGATIVE Urine Urobilinogen (0.2 - 1.0 EU/dL) 0.2 Ur Leukocyte Esterase (NEGATIVE) NEGATIVE Urine RBC (0 - 1 rbc/hpf) 0-1 Urine WBC (0 - 1 wbc/hpf) 0-1 Ur Epithelial Cells (0 - 5 EPI/hpf) 0-1 Urine Bacteria (NONE SEEN) NONE SEEN Urine Glucose (NEGATIVE) NEGATIVE Urine Comment CULT NOT INDICATED 10/02 2306 Chemistry Plasma Sodium (136 - 145 mmol/L) 139 Plasma Potassium (3.5 - 5.1 mmol/L) 3.7 Plasma Chloride (98 - 107 mmol/L) 102 CO2 (Enzymatic) (21 - 32 mmol/L) 26 BUN (7 - 18 mg/dL) 18 Creatinine (0.6 - 1.3 mg/dL) 0.9 Est GFR ( Amer) (mL/min) >60 Est GFR (Non-Af Amer) (mL/min) >60 Glucose (70 - 110 mg/dL) 136 Plasma Calcium (8.5 - 10.1 mg/dL) 9.3 Total Bilirubin (0.0 - 1.0 mg/dL) 0.9 AST (15 - 37 U/L) 22 ALT (12 - 78 U/L) 23 Alkaline Phosphatase (46 - 116 U/L) 70 Total Protein (6.4 - 8.2 g/dL) 7.6 Albumin (3.3 - 5.0 g/dL) 4.4 Amylase (25 - 115 U/L) 192 Lipase (73 - 393 U/L) 645 Hematology WBC (4.5 - 11.5 K/uL) 8.5 RBC (4.50 - 5.90 M/uL) 5.46 Hgb (13.5 - 17.5 gm/dL) 16.3 Hct (41.0 - 53.0 %) 47.6 MCV (80 - 100 fL) 87 MCH (26 - 34 pg) 30 RDW (11.6 - 14.8 %) 13.5 Gran % 73.5 Lymph % (Auto) (25 - 40 %) 21.5 Cowley % (Auto) (3 - 14 %) 5.0 Plt Count, EDTA (150 - 400 K/uL) 228 PUBS MCHC (31 - 37 g/dL) 34 Toxicology Plasma/Serum Ethyl Alc (3 - 10 mg/dL) <3 Chemistry Plasma Sodium (136 - 145 mmol/L) 139 Plasma Potassium (3.5 - 5.1 mmol/L) 3.7 Plasma Chloride (98 - 107 mmol/L) 102 CO2 (Enzymatic) (21 - 32 mmol/L) 26 BUN (7 - 18 mg/dL) 18 Creatinine (0.6 - 1.3 mg/dL) 0.9 Est GFR ( Amer) (mL/min) >60 Est GFR (Non-Af Amer) (mL/min) >60 Glucose (70 - 110 mg/dL) 136 Plasma Calcium (8.5 - 10.1 mg/dL) 9.3 Total Bilirubin (0.0 - 1.0 mg/dL) 0.9 AST (15 - 37 U/L) 22 ALT (12 - 78 U/L) 23 Alkaline Phosphatase (46 - 116 U/L) 70 Total Protein (6.4 - 8.2 g/dL) 7.6 Albumin (3.3 - 5.0 g/dL) 4.4 Amylase (25 - 115 U/L) 192 Lipase (73 - 393 U/L) 645 Hematology WBC (4.5 - 11.5 K/uL) 8.5 RBC (4.50 - 5.90 M/uL) 5.46 Hgb (13.5 - 17.5 gm/dL) 16.3 Hct (41.0 - 53.0 %) 47.6 MCV (80 - 100 fL) 87 MCH (26 - 34 pg) 30 RDW (11.6 - 14.8 %) 13.5 Gran % 73.5 Lymph % (Auto) (25 - 40 %) 21.5 Cowley % (Auto) (3 - 14 %) 5.0 Plt Count, EDTA (150 - 400 K/uL) 228 PUBS MCHC (31 - 37 g/dL) 34 Toxicology Plasma/Serum Ethyl Alc (3 - 10 mg/dL) <3 Assessment and Plan Problem List 1. Vomiting 2. Gastroenteritis Status Acute Onset Date Unknown Plan Current status: [current status] Anticipated discharge date: [discharge date] Anticipated discharge placement: [Home] Patient care time: Time spent in chart review, patient interview, physical exam, CPOE, and care documentation: [ ] minutes Visit to patient today: [ ] Complexity of care: [ ] E&M Codes Rounding: Inpt-Moderate/[id number]
[2016-10-03 10:55] VITALS: BP 132/92
[2016-10-03 14:35] VITALS: BP 151/95
--- NOTE | 2016-10-03 15:29 | DIAGNOSTIC IMAGING REPORT ---
PROCEDURE: US ABDOMEN ULTRASOUND-LIMITED INDICATION: Right abdominal pain. TECHNIQUE: Strickland scale and color Doppler sonographic images of the abdomen were obtained. COMPARISON: Compared to CT abdomen and pelvis on 06/14/2012. FINDINGS: Gallbladder is normal. No evidence of gallstones. Common duct is normal (3 mm). Portions of the liver are seen. There is mild fatty infiltration of the liver. There is a 1.8 cm cyst in the left lobe (previously documented). Portions of the pancreas, aorta, and right kidney (1.5 cm cyst inferior pole) are seen, and are normal. IMPRESSION: 1. Negative ultrasound of the gallbladder. No evidence of gallstones. or cholecystitis. 2. Fatty infiltration of the liver. 3. Findings discussed with Dr. Mathew.
--- NOTE | 2016-10-03 16:15 | Provider's Discharge Care Plan ---
Problem, Goal, Plan Problem List 1. Gastroenteritis Goals: Improve disease control, Prevent disease progress Instructions: Follow up as directed, Take meds as directed, Avoid processed foods, Full liquid diet for 24 hours then advance to regular diet. Avoid milk products for 2 days.
--- NOTE | 2016-10-03 16:27 | Discharge Summary ---
Discharge Summary Report Admit Date 10/03/16 Discharge Date 10/03/16 Admission Diagnosis 1. Nausea and vomiting 2. Elevated lipase/amylase Discharge Diagnosis 1. Gastroenteritis 2. Elevated lipase/amylase Brief History See history and physical examination and ER visit note Hospital Course The following problems and their management were noted during the patient's hospitalization: 1. Gastroenteritis The patient presented with findings of nausea and vomiting. This resolved early in the patient's hospital course. At the time of discharge the patient was taking clear liquids well without problems. There were no findings of nausea, vomiting, or abdominal pain at the time of discharge. Ultrasound was obtained which showed no liver or biliary tree abnormalities. The patient was discharged on a full liquid diet 24 hours then advance as tolerated. Outpatient follow per PCP this week. 2. Elevated lipase/amylase The patient was noted to have findings of mild elevation of amylase/lipase. This resolved soon after admission. Ultrasound of the liver and biliary tree was unremarkable. Lipid profile was unremarkable. No clear etiology of the patient's mild elevation left (Nondiagnostic) of amylase and lipase. Outpatient follow-up with PCP. General Appearance Alert, Oriented X3, Cooperative, No acute distress Lungs Clear to auscultation Cardiovascular Regular Rate, Normal S1, Normal S2 Abdomen Normal bowel sounds, Soft, No tenderness Neurological Grossly normal. Psych/Mental Status Mental status NL, Mood NL Lab/Imaging Laboratory Tests 10/03 10/03 10/03 10/02 0640 [id number] Chemistry Plasma Sodium (136 - 145 mmol/L) 136 Plasma Potassium (3.5 - 5.1 mmol/L) 3.7 Plasma Chloride (98 - 107 mmol/L) 104 CO2 (Enzymatic) (21 - 32 mmol/L) 20 BUN (7 - 18 mg/dL) 11 Creatinine (0.6 - 1.3 mg/dL) 0.7 Est GFR ( Amer) (mL/min) >60 Est GFR (Non-Af Amer) (mL/min) >60 Glucose (70 - 110 mg/dL) 136 Hemoglobin A1c % (4.5 - 6.2 %) 4.7 Lactic Acid (0.4 - 2.0 mmol/L) 1.2 Plasma Calcium (8.5 - 10.1 mg/dL) 8.4 Amylase (25 - 115 U/L) 79 Lipase (73 - 393 U/L) 116 Hematology WBC (4.5 - 11.5 K/uL) 11.3 RBC (4.50 - 5.90 M/uL) 5.28 Hgb (13.5 - 17.5 gm/dL) 15.7 Hct (41.0 - 53.0 %) 46.3 MCV (80 - 100 fL) 88 MCH (26 - 34 pg) 30 RDW (11.6 - 14.8 %) 13.7 Neut % (Auto) (50 - 75 %) 87.2 Lymph % (Auto) (25 - 40 %) 10.6 [place] % (Auto) (3 - 14 %) 2.0 Eos % (Auto) (0 - 4 %) 0 Baso % (Auto) (0 - 2 %) 0.2 Plt Count, EDTA (150 - 400 K/uL) 245 PUBS MCHC (31 - 37 g/dL) 34 Toxicology Urine Opiates Screen (NEGATIVE) NEGATIVE Urine Methadone Screen (NEGATIVE) NEGATIVE Ur Barbiturates Screen (NEGATIVE) NEGATIVE U Amphetamin/Meth Scrn (NEGATIVE) NEGATIVE MDMA (Ecstasy) Screen (NEGATIVE) NEGATIVE U Benzodiazepines Scrn (NEGATIVE) NEGATIVE Urine Cocaine Screen (NEGATIVE) NEGATIVE U Cannabinoids Screen (NEGATIVE) POSITIVE Urines Urine Color YELLOW Urine Appearance CLEAR Urine pH (5.0 - 8.0) 7.0 Ur Specific [place] (1.010 - 1.030) 1.020 Urine Protein (NEGATIVE) NEGATIVE Urine Ketones (NEGATIVE) 1+ Urine Blood (NEGATIVE) NEGATIVE Urine Nitrite (NEGATIVE) NEGATIVE Urine Bilirubin (NEGATIVE) NEGATIVE Urine Urobilinogen (0.2 - 1.0 EU/dL) 0.2 Ur Leukocyte Esterase (NEGATIVE) NEGATIVE Urine RBC (0 - 1 rbc/hpf) 0-1 Urine WBC (0 - 1 wbc/hpf) 0-1 Ur Epithelial Cells (0 - 5 EPI/hpf) 0-1 Urine Bacteria (NONE SEEN) NONE SEEN Urine Glucose (NEGATIVE) NEGATIVE Urine Comment CULT NOT INDICATED 10/02 2307 Chemistry Plasma Sodium (136 - 145 mmol/L) 139 Plasma Potassium (3.5 - 5.1 mmol/L) 3.7 Plasma Chloride (98 - 107 mmol/L) 102 CO2 (Enzymatic) (21 - 32 mmol/L) 26 BUN (7 - 18 mg/dL) 18 Creatinine (0.6 - 1.3 mg/dL) 0.9 Est GFR ( Amer) (mL/min) >60 Est GFR (Non-Af Amer) (mL/min) >60 Glucose (70 - 110 mg/dL) 136 Plasma Calcium (8.5 - 10.1 mg/dL) 9.3 Total Bilirubin (0.0 - 1.0 mg/dL) 0.9 AST (15 - 37 U/L) 22 ALT (12 - 78 U/L) 23 Alkaline Phosphatase (46 - 116 U/L) 70 Total Protein (6.4 - 8.2 g/dL) 7.6 Albumin (3.3 - 5.0 g/dL) 4.4 Triglycerides (30 - 200 mg/dL) 151 Cholesterol (140 - 200 mg/dL) 161 LDL Cholesterol, Calc (mg/dL) 86 HDL Cholesterol (32 - 96 mg/dL) 45 LDL/HDL Ratio 1.9 Cholesterol/HDL Ratio 3.6 Coronary Risk Interp (0.4 - 1.0) 0.6 Amylase (25 - 115 U/L) 192 Lipase (73 - 393 U/L) 645 Hematology WBC (4.5 - 11.5 K/uL) 8.5 RBC (4.50 - 5.90 M/uL) 5.46 Hgb (13.5 - 17.5 gm/dL) 16.3 Hct (41.0 - 53.0 %) 47.6 MCV (80 - 100 fL) 87 MCH (26 - 34 pg) 30 RDW (11.6 - 14.8 %) 13.5 Gran % 73.5 Lymph % (Auto) (25 - 40 %) 21.5 [place] % (Auto) (3 - 14 %) 5.0 Plt Count, EDTA (150 - 400 K/uL) 228 PUBS MCHC (31 - 37 g/dL) 34 Toxicology Plasma/Serum Ethyl Alc (3 - 10 mg/dL) <3 Discharge Instructions/Meds For other recommendations regarding discharge diet, activity, followup, and discharge medications please see the patient's discharge instructions. Discharge condition: Fair, improved Greater than 30 min. was spent in the patient's discharge preparation including discharge interview and physical examination, progress note, discharge instructions, and discharge summary The patient was interviewed and examined on the day of discharge. E&M Codes Discharge: Observation - All/[id number]
== END 2016-10-03 16:55 | disposition home or self-care (01) ==
LOC: ED SRH 22:26 → TRANS SRH 10-03 00:10 → ACUTE2 SRH 10-03 00:24
PROVIDERS: ADMIT Family Medicine
DX: K52.9 Noninfective gastroenteritis and colitis, unspecified (principal); R74.8 Abnormal levels of other serum enzymes; I10 Essential (primary) hypertension; F12.10 Cannabis abuse, uncomplicated
CPT/HCPCS: 29230; 29242; 29247; 29263; 90004; 90047; 90074; 90100; 91286; 92010; 92031; 92235; 92530; 92690; 92760; 92761; 92762; 92763; 92764; 92765; 92766; 92767; 95059